=== PATIENT | male | born 1980 | race Caucasian/White ===

== ENCOUNTER → 2018-05-12 18:58 | Emergency (ER) | payer BC ==
--- NOTE | 2018-05-12 21:11 | ED ---
Head Injury - HPI Summary HPI Summary: 38-year-old male presents with head injury today. He states he slipped backwards and hit his head. No loss consciousness. He admits to nausea but no vomiting. He admits to occasional dizziness. He states his symptoms are improving. He denies any photophobia. He does admits to difficulty concentrating. Has neck pain only on the right side of his neck. No midline tenderness. Has full range of motion of neck. Denies any other injury. Is not on blood thinners. Has history of high blood pressure. - History Of Current Complaint Chief Complaint: EDHeadInjury Stated Complaint: FALL, HEAD INJURY Time Seen by Provider: 05/12/18 21:04 Pain Intensity: 3 - Allergies/Home Medications Allergies/Adverse Reactions: Allergies Allergy/AdvReac Type Severity Reaction Status Date / Time No Known Allergies Allergy Verified 05/12/18 19:17 PMH/Surg Hx/FS Hx/Imm Hx Endocrine/Hematology History: Denies: Hx Anticoagulant Therapy Respiratory History: Denies: Hx Asthma Infectious Disease History: No Infectious Disease History: Denies: Traveled Outside the [place] in Last 30 Days - Family History Known Family History: Negative: Seizure Disorder - Social History Substance Use Type: Reports: None Smoking Status (MU): Never Smoked Tobacco Review of Systems Negative: Fever Negative: Chest Pain Negative: Shortness Of Breath Positive: Headache All Other Systems Reviewed And Are Negative: Yes Physical Exam Triage Information Reviewed: Yes Vital Signs On Initial Exam: Initial Vitals Temp Pulse Resp BP Pulse Ox 98.5 F 93 16 157/109 99 05/12/18 19:16 05/12/18 19:16 05/12/18 19:16 05/12/18 19:16 05/12/18 19:16 Vital Signs Reviewed: Yes Appearance: Positive: Well-Appearing Skin: Positive: Warm, Dry Head/Face: Positive: Normal Head/Face Inspection, Other - bruise to posterior head Eyes: Positive: Normal, EOMI, KARL, Conjunctiva Clear ENT: Positive: Normal ENT inspection, TMs normal Respiratory/Lung Sounds: Positive: Clear to Auscultation, Breath Sounds Present Cardiovascular: Positive: Normal, RRR Abdomen Description: Positive: Nontender, Soft Bowel Sounds: Positive: Present Musculoskeletal: Positive: Normal Neurological: Positive: Sensory/Motor Intact, Alert, Oriented to Person Place, Time, CN Intact II-III Psychiatric: Positive: Normal - Alina Coma Scale Best Eye Response: 4 - Spontaneous Best Motor Response: 6 - Obeys Commands Best Verbal Response: 5 - Oriented Coma Scale Total: 15 Diagnostics - Vital Signs Vital Signs Temp Pulse Resp BP Pulse Ox 05/12/18 19:16 98.5 F 93 16 157/109 99 - Laboratory Lab Statement: Any lab studies that have been ordered have been reviewed, and results considered in the medical decision making process. Head Injury Course/Dx Course Of Treatment: 38-year-old male presents with head injury today. He states he slipped backwards and hit his head. No loss consciousness. He admits to nausea but no vomiting. He admits to occasional dizziness. He states his symptoms are improving. He denies any photophobia. He does admits to difficulty concentrating. Has neck pain only on the right side of his neck. No midline tenderness. Has full range of motion of neck. Denies any other injury. Is not on blood thinners. Has history of high blood pressure. On exam has normal neuro exam. According to [place] [facility] rules does not need any head imaging. discussed concussion precautions. Patient understands agrees with plan - Diagnoses Differential Diagnosis/HQI/PQRI: Concussion Without LOC, Contusion, Intracranial Bleed Provider Diagnoses: Head injury Discharge - Sign-Out/Discharge Documenting (check all that apply): Patient Departure - Discharge Plan Condition: Good Disposition: HOME Patient Education Materials: Head Injury (ED) Referrals: [facility] [Outside] Additional Instructions: Place ice on area as needed Take Tylenol or ibuprofen for headache every 6 hours Modify activities as tolerated Follow up with primary Return to ED if develop vomiting,or any new or worsening symptoms - Billing Disposition and Condition Condition: GOOD Disposition: Home
[2018-05-12 21:27] VITALS: BP 146/96
== END | disposition home or self-care (01) ==
LOC: ED 18:58
DX: S09.90XA Unspecified injury of head, initial encounter (principal); W01.0XXA Fall on same level from slipping, tripping and stumbling without subsequent striking against object, initial encounter; Y92.9 Unspecified place or not applicable
CPT/HCPCS: 99281